=== PATIENT | female | born 1975 | race Two or more races ===

== ENCOUNTER 2024-01-11 16:31 | Outpatient (CLI) | payer BC, SELFPAY ==
[2024-01-11 20:43] LABS: Chlamydia DNA Amplified* NOT DETECTED (No Detected); GC DNA Amplified* NOT DETECTED (No Detected)
== END 2024-01-11 16:32 | disposition home or self-care (01) ==
LOC: NFLDREF 16:32
PROVIDERS: PCP Family Medicine; Visit Provider Registered Nurse
DX: N89.8 Other specified noninflammatory disorders of vagina (principal)
CPT/HCPCS: 87491; 87591

== ENCOUNTER 2024-01-16 15:33 | Outpatient (CLI) | payer BC, SELFPAY ==
--- NOTE | 2024-01-16 16:00 | US_ITS ---
Patient: GERARDO UNGER Facility:?[facility] Patient ID:?[id number] Site Patient ID:?[id number]. Site :?[id number] Study:?US-OB Pelvis TA/TV Pelvic US-01/16/2024 4:46:17 PM Ordering Physician:?Cristiane Leone Final Report: INDICATION: Pain, dyspareunia, Anemia, COMPARISON: none TECHNIQUE: 2D fenton scale and color Doppler images were acquired of the pelvis using a transabdominal and transvaginal approach. In addition, spectral Doppler evaluation of both ovaries performed due to the history of pain. FINDINGS: Sonographic images demonstrate a normal size and smooth outer contour of the uterus. Uterus measures 9.1 cm in length by 4.8 cm in AP diameter by 5.6 cm in transverse dimension. The myometrium has a normal uniform echotexture. The endometrial lining appears thickened and measures 1.5 cm in composite thickness. The right ovary measures 3.2 x 1.7 x 2.3 cm in size and the left ovary measures 3.8 x 1.5 x 2.5 cm. The ovaries demonstrate normal arterial and venous blood flow on color Doppler analysis. There are no suspicious fluid collections within the cul-de-sac. Normal spectral Doppler evaluation of both ovaries. IMPRESSION: Endometrial thickness 1.5 cm. No endometrial fluid. No uterine fibroid. Normal ovaries. No torsion, excess pelvic free fluid or adnexal mass. Dictated by Kenton Robertson MD @ 01/17/2024 10:39:18 AM Signed by:?Kenton Robertson MD @01/17/2024 10:39:18 AM (Electronic Signature)
== END 2024-01-16 15:34 | disposition home or self-care (01) ==
LOC: US 15:34
PROVIDERS: PCP Family Medicine; Visit Provider Registered Nurse
DX: N94.10 Unspecified dyspareunia (principal); R93.89 Abnormal findings on diagnostic imaging of other specified body structures; D64.9 Anemia, unspecified
CPT/HCPCS: 76830; 76856; 93976; T1013

== ENCOUNTER 2024-02-23 09:15 | Outpatient (CLI) | payer BC, SELFPAY ==
--- NOTE | 2024-02-23 11:29 | W.ANESCHARGE ---
Anesthesia Charges Start Date/Time Anesthesia Start Date: 02/23/24 Anesthesia Start Time: 11:02 Stop Date/Time Anesthesia Stop Date: 02/23/24 Anesthesia Stop Time: 11:27
--- NOTE | 2024-02-23 11:42 | W.ANESCHARGE ---
Anesthesia Charges Start Date/Time Anesthesia Start Date: 02/23/24 Anesthesia Start Time: 11:02 Stop Date/Time Anesthesia Stop Date: 02/23/24 Anesthesia Stop Time: 11:27
== END 2024-02-23 09:16 | disposition home or self-care (01) ==
LOC: OP CLINIC 09:16
PROVIDERS: PCP Family Medicine; Visit Provider Surgery
DX: Z12.11 Encounter for screening for malignant neoplasm of colon (principal); K63.5 Polyp of colon; K64.8 Other hemorrhoids; K64.4 Residual hemorrhoidal skin tags
CPT/HCPCS: 00811; 45385; 88305; T1013; J2704

== ENCOUNTER 2024-07-16 17:55 | Outpatient (CLI) | payer BC, SELFPAY ==
--- NOTE | 2024-07-16 18:15 | CRLHL7_ITS ---
For Patients: As a result of the Century Cures Act, medical imaging exams and procedure reports are released immediately into your electronic medical record. You may view this report before your referring provider. If you have questions, please contact your health care provider. Indication: Paresthesia of skin Technique: Noncontrast sagittal T1 weighted, axial FLAIR, axial T2 weighted, and axial diffusion weighted sequences are provided. Comparison: No prior studies available for comparison at this institution. Findings: The ventricles, sulci and gyri are normal size, shape and contour for age. Few punctate foci of T2 prolongation in the supratentorial white matter nonspecific. The midline structures are centrally located with no evidence of shift. The pituitary gland, optic chiasm, pituitary gland, and cerebellar tonsils are unremarkable. There are no suspicious intra or extra-axial fluid collections. No region of restricted diffusion. No pathologic susceptibility artifacts. Expected flow voids in the cavernous carotids and basilar artery. Impression: 1. No acute intracranial abnormality. 2. Punctate focus of T2 prolongation in the left frontal lobe subcortical white matter is nonspecific. Differential considerations include sequela of migraine headaches, prior inflammation, or minimal chronic microangiopathic changes. Dictated by Kenton Henderson MD @ 07/20/2024 11:38:24 AM (Electronically Signed)
== END 2024-07-16 17:56 | disposition home or self-care (01) ==
LOC: MRI 17:56
PROVIDERS: PCP Family Medicine; Visit Provider Registered Nurse
DX: R20.2 Paresthesia of skin (principal); R29.810 Facial weakness
CPT/HCPCS: 70551; T1013

== ENCOUNTER 2024-12-27 09:14 | Emergency (ER) | payer BC, SELFPAY ==
[2024-12-27 09:17] VITALS: BP 126/68; PULSE 86; RESP 20; TEMP 36.5; O2SAT 98; BMI 29.4
--- OUTSIDE RECORDS SUMMARY | 2024-12-27 09:17 | XMS_ITS | Clinical Summary ---
Author Organization [facility] Address [address] [place] [id number] Care Team Providers Care Cut Filer Name Role Phone Pcp, No Primary Care Provider Unavailabl e Allergies No known active allergies Medications albuterol HFA (PRO-AIR; VENTOLIN; PROVENTIL) 90 mcg/actuation inhalerIndications :SOB (shortness of breath) Inhale 1-2 Puffs by mouth every 4 hours if needed for Shortness of Breath 1st choice. 1 Each 2 Active [id number]-Fi sh Oil 1,000 mg (120 mg-180 mg) cap Take 1 Capsule (1,000 mg) by mouth. 0 3 Active naproxen (NAPROSYN) 500 mg tabletIndications: Bilateral carpal tunnel syndrome,Right elbow pain Take 1 Tablet (500 mg) by mouth every 12 hours if needed for Pain. 28 Tablet 3 Active ondansetron (ZOFRAN ODT) 4 mg disintegrating tabletIndications: Headache syndrome Place 1 Tablet (4 mg) on the tongue every 8 hours if needed for Nausea/Vomiti ng. 30 Tablet 3 Active ferrous sulfate 325 mg delayed release tabletIndications: Iron deficiency anemia, unspecified iron deficiency anemia type Take 1 Tablet (325 mg) by mouth two times daily with meals. 90 Tablet 3 3 Active Active Problems Problem Noted Date Diagnosed Date Diarrhea of presumed infectious origin 9 Colitis 08/15/2019 Herniated nucleus pulposus, L5-S1, left 10/11/20 17 History of spinal fracture 09/15/2017 Overview (09/15/2017): Reports fracture of vertebra in 2007 after a fall on the ice Thickened endometrium. Biopsy done 08/15/1507/31 Chronic low back pain 01/30/2015 Atypical migraine 08/08/2012 Depression with anxiety 03/02/2012 LTBI (latent tuberculosis infection) 10/25/2011 Overview (03/19/2013): Has completed 9 month INH course S/P hernia repair 09/14/2011 Anemia, unspecified 08/09/2011 Radiculopathy, lumbar region Pap smear for cervical cancer screening Overview (03/03/2022): 12/2021 NIL/HPV negative. Plan: Pap/HPV due 12/2026 Resolved Problems Problem Noted Date Diagnosed Date Resolved Date Fever 08/15/2019 08/24/2019 Mantoux: positive 08/26/2011 10/25/2011 Overview (08/26/2011): Also positive quantiferon gold test consistent with probable Latent TB Infection (LTBI). Patient should receive prophylactice therapy with INH and pyridoxine. Atypical chest pain 08/26/2011 01/31/20 15 Tobacco abuse disorder 08/16/201108/08 Femoral hernia 08/11/2011 08/08/2012 Inguinal hernia without ment ion of obstruction or gangrene, unilateral or unspecified, (not specified as recurrent) 08/09/2011 08/16/2011 Hepatitis, unspecified 07/15/200901/30 Other and unspecified noninf ectious gastroenteritis and colitis(558.9) 07/15/200901/30 Immunizations Name Administration Dates Next Due Influenza, IIV3 (Age 6-35 mos) 08/03/2011 Influenza, IIV3 (Age >=3 years) 08/03/2011 Influenza, IIV4 07/02/2022, 0,08/08/2018,08/02/2017, 07/19/2016,07/09/2015 Tdap 01/22/2022, 0(Deferred: Patient Refused),11/25/2010 Tuberculin (PPD) 08/16/2011 Family History Medical History Relation Name Comments Alcohol/Drug Father Diabetes Mother Other Mother migraines Anesthesia Problem No Family History Blood Disease No Family History Cancer-breast No Family History Cancer-colon No Family History Cancer-ovarian No Family History Relation Name Status Comments Father alcohol complic ations Mother Social History Tobacco Use Types Packs/Day Years Used Date Smoking Tobacco: Never Cigarettes 0.[address] arted: 08/27/2013 Smokeless Tobacco: Never Tobacco Cessation:Counseling Given: Yes Alcohol Use Standard Drinks/Week Comments Yes 0 (1 standard drink = 0.6 oz pur e alcohol) alcohol abuse 17 years ago PHQ-2 Answer Date Recorded PHQ-2 TOTAL SCORE 3 01/22/2022 Social Connections Answer Date Recorded Frequency of Communication with Friends and Fami ly Not on file 10/31/2023 Financial Resource Strain Answer Date R ecorded Difficulty of Paying Living Expenses 1 10/06/2022 Difficulty of Paying Living Expenses 2 10/06/2022 Food Insecurity Answer Date Recorded Worried About Running Out of Food in the Last Ye ar 2 10/06/2022 Transportation Needs Answer Date Record ed Lack of Transportation (Medical) 1 10/06/2022 Housing Stability Answer Date Recorded Unable to Pay for Housing in the Last Year 1 10/06/2022 Comments No Sex and Gender Information Value Date Recorded Sex Assigned at Not on file Legal Sex Female 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 Gender Identity Not on file Sexual Orientation Not on file Obstetrics History Para Term AB IAB SAB Ectopic Multiple Livin g Live Births 4 4 4 Date Outcome GA Total Labor Labor/2nd/3rd Weight Sex Type Anes PTL Aubrie A1 A5 Name Clin Para Para Para Para Comments 4 vaginal deliveries Last Filed Vital Signs Vital Sign Reading Time Taken Comments Blood Pressure 116/74 12/23/2023 11:05 AM [employer] SUPERVISOR Pulse 74 12/23/2023 11:05 AM [employer] SUPERVISOR Temperature 36.8 C (98.2 F) 12/23/2023 11:05 AM [employer]PARTMENT SUPERVISOR Respiratory Rate 18 07/05/2023 12:49 AM CDT Oxygen Saturation 99% 12/23/2023 11:05 AM [employer] SUPERVISOR Inhaled Oxygen Concentration - - Weight 75.5 kg (166 lb 6.4 oz) 12/23/2023 11:05 AM [employer] SUPERVISOR Height 162.5 cm (5' 3.98) 07/07/2023 1:40 PM CD T Body Mass Index 28.58 07/07/2023 1:40 PM CDT Plan of Treatment Health Maintenance Due Date Last Done Comments HIV for age 15-65 1989 Colonoscopy through age 75 2019 Depression screening for age 12+ 01/25/2023 01/25/2022, 01/22/2022, 01/22/2022, Additional history exists Mammogram for age 45-75 06/17/2023 06/17/20, 06/01/2021, 05/21/2020, Additional history exists COVID-19 vaccine series ( - 2023- season) 2024 BMI (ht and wt on same day) for age 18+ 07/07/2024 07/07/2023, 10/06/2022, 01/22/2022, Additional history exists Influenza for age 50-64 2024 07/02/20, 11/08/2019, 08/08/2018, Additional history exists Pneumococcal series for age 50+ (1 of 1 - PCV) 2024 Zoster (shingles) series for age 50+ (1 of 2) 2024 Lipids for age 45-75 01/22/2027 01/22/2022, 05/21/2020, 05/15/2019, Additional history exists Pap test for age 21-65 01/22/2027 , 01/22/2022, 01/12/2018, Additional history exists Tetanus booster 01/23/2032 01/22/2022, 11/25/2010 Tdap Completed 01/22/2022, 11/25/2010 Hepatitis C screening for ag e 18-79 Completed 07/02/2022 Medical Devices Implanted Type Area Manufactured Buildings Supervisor Device Identifier Shelf Expiration Date Model / Serial / Lot Syshira Hernia Ultrapro - [id number] Implanted:Qty: 1 on 09/03/2011 at [facility] Right: Inguinal J And J [employer] Hernia Solution 09/30/2012 [facility]# / / [id number] Procedures Procedure Name Priority Date/Time Associated Diagnosis Comments ANTI HCV Routine 07/02/2022 3:32 PM CDT Need for hepatitis C screening test XR MAMMO ELVA BILAT SCREEN Routine 06/17/2022 4:13 PM CDT Visit for screening mammogram LIPID PANEL W REFLEX MEASURED LDL Routine 01/22/2022 1:48 PM CDT Screening for lipid disorders HPV HIGH RISK Routine 01/22/2022 1:07 PM CDT Screening for malignant neoplasm of cervix from Last 3 Months or Most Recently Relevant to Health Maintenance Results * ANTI HCV (07/02/2022 3:32 PM CDT) HEPATITIS C ANTIBODY Non-React jacquelin Non-React jacquelin 07/03/2022 9:19 AM CDT [facility] Comment:Antibodies to HCV no t detected; does not exclude the possibility of exposure to HCV. Blood BLOOD SPECIMEN / Unknown Venipuncture / Unknown 07/02/2022 3:32 PM CDT 07/02/2022 3:34 PM CDT us Lisa STALLWORTH SEND OUTS Final Resu lt [facility] [address] [place] [address], * XR MAMMO ELVA BILAT SCREEN (06/17/2022 4:13 PM CDT) Anatomical Region Laterality Modality BREASTS, Breast Left, Breast Right Bilateral Mammography Impressions 06/18/2022 2:38 PM CDT There is no radiographic evidence for malignancy. Recommend annual mammograms. MAMMOGRAM ASSESSMENT: ACR 1 Negative PATIENTS: You will also receive a letter with your examination results in an easy to read format. If you have questions about your results, please contact your referring provider. Narrative 06/18/2022 2:38 PM CDT For Patients: As a result of the Cures Act, medical imaging exams and procedure reports are released immediately into your electronic medical record. You may view this report before your referring provider. If you have questions, please contact your health care provider. XR MAMMO ELVA BILAT SCREEN [[id number]] CLINICAL HISTORY: This is an asymptomatic 46 y.o. patient. INDICATION FOR EXAM: Mammogram Screening. TECHNIQUE: CC & MLO views were obtained. This study was evaluated with the assistance of Computer-Aided Detection. Breast Tomosynthesis was used in interpretation. COMPARISON FILM: Yes 06/01/21 [facility] 05/21/20 [facility] FINDINGS: The breasts have scattered areas of fibroglandular density. There are no dominant masses, suspicious micro calcifications or areas of architectural distortion. Lisa STALLWORTH MAMMO Final Resu lt * (ABNORMAL) LIPID PANEL W REFLEX MEASURED LDL (01/22/2022 1:48 PM CDT) CHOLESTEROL,TOTAL 157 100 - 199 mg/dL 01/22/2022 11:13 PM CDT [facility] TRIGLYCERIDES 65 <150 mg/dL 01/22/2022 11:13 PM CDT [facility] HDL CHOLESTEROL 33(L) >40 mg/dL 11:13 PM CDT [facility] NON-HDL CHOLESTEROL 124 <145 mg/dl 01/22/2022 11:13 PM CDT [facility] CHOL/HDL RATIO 4.76(H) <4.50 01/22/2022 11:13 PM CDT [facility] LDL CHOLESTEROL 111 <=130 mg/dL 01/22/2022 11:13 PM CDT [facility] VLDL CHOLESTEROL 13 <=30 mg/dL 01/22/2022 11:13 PM CDT [facility] PROVIDER ORDERED STATUS RANDOM 01/22/2022 11:13 PM CDT [facility] Blood BLOOD SPECIMEN / Unknown Venipuncture / Unknown 01/22/2022 1:48 PM CDT 01/22/2022 1:48 PM CDT Lisa STALLWORTH CHEMISTRY Final Resu lt [facility] [address] [place] [address], * HPV HIGH RISK (01/22/2022 1:07 PM CDT) TYPE 16 Negative Negative 01/26/2022 2:27 PM CDT [facility] TYPE 18 Negative Negative 01/26/2022 2:27 PM CDT [facility] OTHER HIGH RISK TYPES Negative Negative 01/26/2022 2:27 PM CDT [facility] Other (Cervical) Non-Blood / Unknown 01/22/2022 1:07 PM CDT 01/25/2022 7:55 AM CDT Narrative [facility] - 01/26/2022 2:27 PM CDT HPV types 16, 18, 31, 33, 35, 39, 45, 51, 52, 56, 58, 59, 66 and 68 DNA were undetectable or below the pre-set threshold. Methodology: [employer] 4800 HPV Test us Lisa STALLWORTH MICROBIOLOGY Final Resu lt Performing Organization Address City/[facility]/ZIP Co de Phone Number [facility] [address] [place] [phone], from Last 3 Months or Most Recently Relevant to Health Maintenance Insurance [facility] ATTN: [place] [address] Advance Directives * Full Code (Latest Code Status on File) Date Activated Date Inactivated Comments 08/14/2019 7:54 PM 08/16/2019 12:19 PM * Full Code Date Activated Date Inactivated Comments 10/11/2017 3:31 PM 10/11/2017 8:12 PM * Full Code Date Activated Date Inactivated Comments 10/11/2017 10:09 AM 10/11/2017 3:31 PM * Full Code Date Activated Date Inactivated Comments 09/03/2011 6:28 AM 09/03/2011 6:32 AM Care Teams Cut Filer Relationship Specialty Start Date End Date Pcp, No . PCP - General 11/06/24
--- NOTE | 2024-12-27 10:02 | ED.GENADULT ---
HPI - General Adult General Date Seen: 12/27/24 Chief complaint: Abdominal Pain Stated complaint: pain in stomach since tuesday Time Seen by Provider: 12/27/24 09:29 History of Present Illness HPI narrative: patient is a 49-year-old woman, primarily Portuguese-speaking and hydrotherapist was utilized to help with history. She presented initially to urgent care and then was referred here for evaluation of abdominal pain. She tells me that on Tuesday, she had developed some pain in the right lower quadrant. It was her birthday on the , and she did have quite a bit of Tequila to celebrate her birthday. She tells me she drinks beer occasionally but generally does not drink hard alcohol and does not drink regularly. The right lower quadrant pain is still there but now she has more diffuse upper abdominal pain which is more predominant. She has continued to eat and drink although she says she really has not had an appetite, and pain is worsened by eating. She has not had any vomiting, has felt a little nauseated. No fevers, no diarrhea, black or bloody stools. No history of similar pain. No prior abdominal surgeries aside from what sounds like probably tubal ligation. She does not smoke. Last intake was yesterday. Related Data Previous Rx's ?Medication ?Instructions ?Recorded omeprazole 40 mg capsule,delayed 40 mg PO DAILY #30 caps 12/27/24 release Allergies Allergy/AdvReac Type Severity Reaction Status Date / Time No Known Drug Allergies Allergy Verified 12/27/24 10:44 Review of Systems Status of ROS: Reports: 10 or more systems reviewed and unremarkable except as noted in History and below PFSH [facility] Medical History Mild intermittent asthma ?J45.20 - Mild intermittent asthma, uncomplicated (ICD-10) Bilateral carpal tunnel syndrome (04/04/23) ?G56.03 - Carpal tunnel syndrome, bilateral upper limbs (ICD-10) Chronic low back pain ?M54.50 - Low back pain, unspecified (ICD-10) ?G89.29 - Other chronic pain (ICD-10) History of hepatitis ?Z86.19 - Personal history of other infectious and parasitic diseases (ICD-10) Cystocele Migraines ?G43.909 - Migraine, unspecified, not intractable, without status migrainosus (ICD-10) Dyspareunia Positive PPD (2017) ?R76.11 - Nonspecific reaction to tuberculin skin test without active tuberculosis (ICD-10) Anxiety and depression ?F41.9 - Anxiety disorder, unspecified (ICD-10) ?F32.A - Depression, unspecified (ICD-10) Anemia ?D64.9 - Anemia, unspecified (ICD-10) Surgical History History of lumbar discectomy ?Z98.890 - Other specified postprocedural states (ICD-10) History of right inguinal hernia repair ?Z98.890 - Other specified postprocedural states (ICD-10) ?Z87.19 - Personal history of other diseases of the digestive system (ICD-10) H/O tubal ligation ?Z98.51 - Tubal ligation status (ICD-10) H/O tooth extraction ?K08.409 - Partial loss of teeth, unspecified cause, unspecified class (ICD-10) Family History Sister Lung cancer Depression Daughter Thyroid disease Brother Diabetes Mother Migraines Diabetes Depression Father Alcohol dependence Social History Narrative: , four kids, Gonsalez's, nonsmoker, social ETOH What is your current living situation?: I presently have a place to live Problems where you live: no known problems In the past 12 months, utilities in danger of being shut off: no In past 12 months, lack of transportation kept you from medical appts, meetings, work, or getting things needed for daily living: no In the past 12 mos, have been you worried that your food would run out before you had money to buy more?: never true In the past 12 mos, the food you bought just didn't last and you didn't have money to buy more?: never true Smoking Status: Never smoker How often do you have a drink containing alcohol: 2-4 times a month AUDIT-C Alcohol total score: 2 Non-prescribed substance use: denies use How often does anyone, including family, friends and others, physically hurt you: never How often does anyone, including family, friends and others, insult or talk down to you: never How often does anyone, including family, friends and others, threaten you with harm: never How often does anyone, including family, friends and others, scream or curse at you: never Exam Narrative: Exam Narrative: Vital signs reviewed In general, alert, nontoxic Woman. She looks a little uncomfortable. Head: Normocephalic, atraumatic. Eyes: Sclera clear. Pupils equal and reactive. ENT: Mucous membranes moist. Neck: Supple without adenopathy. Heart: Regular rate and rhythm without murmur. Lungs: Clear. No increased work of breathing, crackles or wheezes. Abdomen: Nondistended. She has fairly diffuse tenderness to palpation throughout the abdomen. She has negative Canchola sign. She does have tenderness at McBurney's point. She does not have any rebound guarding or rigidity throughout. Extremities: Well perfused, pulses intact. No significant edema. Neurologic: Alert, conversant. Speech fluent, face symmetric. Moves all extremities equally. Skin: Warm, dry well perfused. Affect: Normal. Const: Vital Signs, click to edit/add: Vital Signs - 24 hr 12/27/24 09:17 Temperature 97.7 F Pulse Rate [Pulse Oximeter] 86 Respiratory Rate 20 Blood Pressure [Ri ght Upper Arm] 126/68 Pulse Oximetry 98 Oxygen Delivery Me thod Room Air Course Course ED Course: following initial evaluation, I did look with a bedside ultrasound. Her gallbladder appears fairly normal to me. I do not see obvious stones or significant sludge, wall thickening or pericholecystic fluid. She does not seem to have a sonographic Canchola's. Overall, my suspicion for biliary disease is lowered by her point of care ultrasound and I did recommend that we proceed with CT scan to further evaluate for pancreatitis, appendicitis, diverticulitis, etcetera. Will obtain labs, UA, EKG. I have low suspicion for cardiac etiology for her symptoms given diffuse abdominal tenderness and duration of symptoms. Initially, Toradol and Zofran as well as Protonix ordered for symptomatic relief. EKG by my review showed a sinus rhythm with a ventricular rate of 66. No ST segment changes, unremarkable T-waves. Labs are entirely within normal limits aside from mild anemia of 10.4 and mild leukopenia with a white blood cell count of 4.24. Last hemoglobin was checked a year ago and was 12 and half at that time. She does not report any GI bleeding today, unclear how acute that changes. I would recommend follow-up with primary care. She did have a colonoscopy in January [address] scan of the abdomen by my review did not show evidence of diverticulitis, appendicitis, pancreatitis or other acute findings. Final radiology read is negative. Etiology of her symptoms is not entirely clear although I wonder about gastritis/peptic ulcer disease related to her recent significant alcohol intake. There is no suggestion of pancreatitis or hepatitis. I recommended a trial of omeprazole with primary care follow-up next week for recheck of abdominal pain as well as hemoglobin. If hemoglobin is continuing to drop, endoscopy may be reasonable. Return to the ER at any time for black or bloody stools, severe pain, fevers vomiting etcetera. Vital Signs Vital signs: Initial Vital Signs Temperature 97.7 F 12/27/24 09:17 Temperature Source Temporal Artery Scan 12/27/24 09:17 Pulse Rate 86 12/27/24 09:17 Respiratory Rate 20 12/27/24 09:17 Blood Pressure 126/68 12/27/24 09:17 Blood Pressure Mean 87 12/27/24 09:17 Blood Pressure Position Sitting 12/27/24 09:17 Pulse Oximetry 98 12/27/24 09:17 Oxygen Delivery Method Room Air 12/27/24 09:17 Vital Signs Temperature 97.7 F 12/27/24 09:17 Pulse Rate 86 12/27/24 09:17 Respiratory Rate 20 12/27/24 09:17 Blood Pressure 126/68 12/27/24 09:17 Pulse Oximetry 98 12/27/24 09:17 Oxygen Delivery Method Room Air 12/27/24 09:17 Temperature 97.7 F 12/27/24 09:17 Pulse Rate 86 12/27/24 09:17 Respiratory Rate 20 12/27/24 09:17 Blood Pressure 126/68 12/27/24 09:17 Pulse Oximetry 98 12/27/24 09:17 Oxygen Delivery Method Room Air 12/27/24 09:17 Medications Administered Medications: Discontinued Medications Generic Name Dose Route Start Last Admin Trade Name Freq PRN Reason Stop Dose Admin Ketorolac Tromethamine 15 mg 12/27/24 09:59 12/27/24 10:41 Ketorolac 15 Mg/Ml Inj IVP 12/27/24 10:00 15 mg ONCE ONE Administration Ondansetron HCl 4 mg 12/27/24 09:59 12/27/24 10:44 Ondansetron 2 Mg/Ml Inj IVP 12/27/24 10:00 4 mg ONCE ONE Administration Pantoprazole Sodium 40 mg 12/27/24 09:59 12/27/24 10:44 Pantoprazole Sodium 40 Mg Inj IVP 12/27/24 10:00 40 mg ONCE ONE Administration Medical Decision Making Lab Data Lab results reviewed: Yes I reviewed the patient's lab results Labs: Lab Results 12/27/24 12/27/24 Range/Units 10:23 10:33 WBC 4.24 L (4.50-11.00) K/uL RBC 4.31 (4.00-5.20) m/uL Hgb 10.4 L (12.0-16.0) gm/dL Hct 33.4 (33.0-51.0) % MCV 78 L (80-100) fL MCH 24 L (26-34) pg MCHC 31 L (32-36) gm/dL RDW Coeff of [place] 15.8 H (11.5-15.5) % Plt Count 186 (140-440) K/uL Neut % (Auto) 58.8 (42.0-72.0) % Lymph % (Auto) 29.2 (20-44) % [place] % (Auto) 9.9 (0.0-11.0) % Eos % (Auto) 2.1 (0.0-7.0) % Baso % (Auto) 0.0 (0.0-3.0) % Neut # (Auto) 2.50 (1.7-7.0) K/uL Lymph # (Auto) 1.20 (0.90-2.90) K/uL [place] # (Auto) 0.40 (0.00-0.90) K/UL Eos # (Auto) 0.10 (0.00-0.50) K/uL Baso # (Auto) 0.00 (0.00-0.30) K/uL Abs Immat Gran (auto) 0.00 (0.00-0.30) K/uL Imm/Tot Granulo (auto) 0.0 % Sodium 137 (135-149) mmol/L Potassium 3.9 (3.6-5.1) mmol/L Chloride 106 (96-114) mmol/L Carbon Dioxide 24 (20-32) mmol/L Anion Gap 7 (7-15) mEq/L BUN 18 (7-30) mg/dL Creatinine 0.6 (0.5-1.5) mg/dL Estimated Creat Clear 96.86 Estimated GFR 109 ml/min Glucose 90 (60-115) mg/dL Lactate 0.8 (0.5-1.9) mmol/L Calcium 8.0 L (8.4-10.6) mg/dL Total Bilirubin 0.4 (0.1-1.5) mg/dL Direct Bilirubin 0.1 (0.0-0.5) mg/dL AST 22 (12-35) U/L ALT 22 (4-35) U/L Alkaline Phosphatase 67 (40-150) U/L C-Reactive Protein < 0.5 L (0.5-1.0) mg/dL Total Protein 6.8 (6.0-8.3) g/dL Albumin 4.0 (3.3-5.0) g/dL Lipase 50 (23-300) U/L Urine Color Yellow (Yellow) Urine Appearance Clear (Clear) Urine pH 8.5 (5.0-8.5) Ur Specific [place] 1.015 (1.000-1.030) Urine Protein Trace A (Negative) Urine Glucose (UA) Negative (Negative) Urine Ketones Negative (Negative) Urine Blood Negative (Negative) Urine Nitrite Negative (Negative) Urine Bilirubin Negative (Negative) Urine Urobilinogen 0.2 (0.2-1.0) Ur Leukocyte Esterase Negative (Negative) Urine RBC 0-2 (0-2) Urine WBC 0-2 (0-5) Ur Squamous Epith Cells Few (None-Few) Urine Bacteria Few A (None) Imaging Data CT scan - abdomen: Attestation: I have reviewed the pertinent imaging results. Radiologist's impression: Patient: Isaiah Burnett MR#: [id number] : 1975 Acct:[id number] Loc: ED Service Date: 12/27/[address]: Ordering Physician: Lima Crowder M.D. Date of Service: 12/27/24 Procedure(s): CT abdomen pelvis w con Accession Number(s): [id number] cc: Lima Crowder M.D.; Kenton Liz M.D.~ For Patients: As a result of the Century Cures Act, medical imaging exams and procedure reports are released immediately into your electronic medical record. You may view this report before your referring provider. If you have questions, please contact your health care provider. Indication: Right lower quadrant abdominal and general upper abdominal pain Technique: Volumetric multidetector CT images of the abdomen and pelvis were obtained after the administration of intravenous contrast. 84 cc Isovue 370 low osmolar intravenous contrast Comparison: None available. Findings: The lung bases are clear. The liver is normal in attenuation without intrahepatic biliary ductal dilatation. The portal vein is patent. The gallbladder is unremarkable without evidence of radiopaque calculus. There is no significant common biliary ductal dilatation or abrupt cut off. The spleen is normal in enhancement and size. The stomach and duodenum are grossly unremarkable. The pancreas is normal in enhancement without significant atrophy. The adrenal glands are unremarkable. The kidneys demonstrate preserved corticomedullary differentiation without evidence of obstructive uropathy. There is moderate stool seen throughout the colon without significant colonic diverticulosis or diverticulitis. The appendix is unremarkable. There is no significant mesenteric, retroperitoneal, or pelvic sidewall lymph nodes. The aorta is nonaneurysmal. There is no significant atherosclerotic disease appreciated. There is demonstration an involuting follicle within the right ovary. Otherwise the ovaries are grossly within normal limits. The pelvic viscera are grossly within normal limits. There is no free fluid or free air. The anterior abdominal wall is intact without significant hernias. The lumbar vertebral body heights are grossly maintained with mild central disc protrusion at the L4-L5 level. Impression: 1. Normal appendix and gallbladder. 2. Moderate stool seen throughout the colon. 3. Mildly prominent right ovary with likely involuting ovarian follicle appreciated. 4. Otherwise, no definite acute intra-abdominal abnormalities are appreciated. Please note that all CT scans at this facility use dose modulation, iterative reconstruction, and/or weight-based dosing when appropriate to reduce radiation dose to as low as reasonably achievable. Dictated by Carlos Marte MD @ 12/27/2024 11:15:38 AM Discharge Plan Discharge Clinical Impression: Abdominal pain, Anemia Patient Disposition: Home, Self-Care Condition: Stable Instructions: Abdominal Pain (ED), Anemia (ED) Additional Instructions: All of your tests today are normal. At this time, I do not see evidence of problems with your gallbladder, liver, appendix, pancreas etcetera. Symptoms may be related to irritation of your stomach from alcohol. I would suggest that we start you on a medicine to help control acid and see if you feel better. You are mildly anemic, I do not know whether this is a new problem or has been going on for a little while, but this should be followed up with your primary doctor. If your abdominal pain is worsening or you have new symptoms such as vomiting, black or bloody stools, fevers or other worsening, return to the emergency department. Otherwise, follow-up with primary care next week. Prescriptions: New omeprazole 40 mg capsule,delayed release(DR/EC) 40 mg PO DAILY Qty: 30 2RF Follow Up/Referrals: Kenton Liz MD [Primary Care Provider] - Stand Alone Forms: [employer] Info Instructions
--- OUTSIDE RECORDS SUMMARY | 2024-12-27 10:12 | XMS_ITS | Clinical Summary ---
Author Organization [facility] Address [address] [place] [id number] Care Team Providers Care Timber Framer Helper Name Role Phone Pcp, No Primary Care Provider Unavailabl e Allergies No known active allergies Medications albuterol HFA (PRO-AIR; VENTOLIN; PROVENTIL) 90 mcg/actuation inhalerIndications :SOB (shortness of breath) Inhale 1-2 Puffs by mouth every 4 hours if needed for Shortness of Breath 1st choice. 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 Gender Identity Not on file Sexual Orientation [...] Comments Blood Pressure 116/74 12/23/2023 11:05 AM LAMP SHADE ASSEMBLER Pulse 74 12/23/2023 11:05 AM LAMP SHADE ASSEMBLER Temperature 36.8 C (98.2 F) 12/23/2023 11:05 AM LAMP SHADE ASSEMBLER Respiratory Rate 18 07/05/2023 12:49 AM CDT Oxygen Saturation 99% 12/23/2023 11:05 AM LAMP SHADE ASSEMBLER Inhaled Oxygen Concentration - - Weight 75.5 kg (166 lb 6.4 oz) 12/23/2023 11:05 AM LAMP SHADE ASSEMBLER Height 162.5 cm (5' 3.98) 07/07/2023 1:40 [...] Completed 07/02/2022 Medical Devices Implanted Type Area Personal Chef Device Identifier Shelf Expiration Date Model / Serial / Lot Syshira Hernia Ultrapro - [id number] Implanted:Qty: 1 on 09/03/2011 at [facility] Right: Inguinal J And J Ethicon Hernia Solution 09/30/2012 [facility]# / / [id number] Procedures Procedure Name Priority Date/Time Associated Diagnosis [...] jacquelin Non-React jacquelin 07/03/2022 9:19 AM CDT [facility] Comment:Antibodies to HCV no t detected; does not exclude the possibility of exposure to HCV. Blood BLOOD SPECIMEN / Unknown Venipuncture / Unknown 07/02/2022 3:32 PM CDT 07/02/2022 3:34 PM CDT us Lisa STALLWORTH SEND OUTS Final Resu lt [facility] [address] [place] [address], * XR MAMMO ELVA BILAT SCREEN (06/17/2022 [...] care provider. XR MAMMO ELVA BILAT SCREEN [[id number]] CLINICAL HISTORY: This is an asymptomatic 46 y.o. patient. INDICATION FOR EXAM: Mammogram Screening. TECHNIQUE: CC & MLO views were obtained. This study was evaluated with the assistance of Computer-Aided Detection. Breast Tomosynthesis was used in interpretation. COMPARISON FILM: Yes 06/01/21 [facility] 05/21/20 [facility] FINDINGS: The breasts have scattered areas of fibroglandular density. There are no dominant masses, suspicious micro calcifications or areas of architectural distortion. Lisa STALLWORTH MAMMO Final Resu lt * (ABNORMAL) LIPID PANEL W REFLEX MEASURED LDL (01/22/2022 1:48 PM CDT) CHOLESTEROL,TOTAL 157 100 - 199 mg/dL 01/22/2022 11:13 PM CDT [facility] TRIGLYCERIDES 65 <150 mg/dL 01/22/2022 11:13 PM CDT [facility] HDL CHOLESTEROL 33(L) >40 mg/dL 11:13 PM CDT [facility] NON-HDL CHOLESTEROL 124 <145 mg/dl 01/22/2022 11:13 PM CDT [facility] CHOL/HDL RATIO 4.76(H) <4.50 01/22/2022 11:13 PM CDT [facility] LDL CHOLESTEROL 111 <=130 mg/dL 01/22/2022 11:13 PM CDT [facility] VLDL CHOLESTEROL 13 <=30 mg/dL 01/22/2022 11:13 PM CDT [facility] PROVIDER ORDERED STATUS RANDOM 01/22/2022 11:13 PM CDT [facility] Blood BLOOD SPECIMEN / Unknown Venipuncture / Unknown 01/22/2022 1:48 PM CDT 01/22/2022 1:48 PM CDT Lisa STALLWORTH CHEMISTRY Final Resu lt [facility] [address] [place] [address], * HPV HIGH RISK (01/22/2022 1:07 PM CDT) TYPE 16 Negative Negative 01/26/2022 2:27 PM CDT [facility] TYPE 18 Negative Negative 01/26/2022 2:27 PM CDT [facility] OTHER HIGH RISK TYPES Negative Negative 01/26/2022 2:27 PM CDT [facility] Other (Cervical) Non-Blood / Unknown 01/22/2022 1:07 PM CDT 01/25/2022 7:55 AM CDT Narrative [facility] - 01/26/2022 2:27 PM CDT HPV types 16, 18, 31, 33, 35, 39, 45, 51, 52, 56, 58, 59, 66 and 68 DNA were undetectable or below the pre-set threshold. Methodology: Medify[employer] 4800 HPV Test us Lisa STALLWORTH MICROBIOLOGY Final Resu lt Performing Organization Address City/[facility]/ZIP Co de Phone Number [facility] [address] [place] [phone], from Last 3 Months or Most Recently Relevant to Health Maintenance Insurance [facility] CARE ATTN: [place] [address] Advance Directives * Full Code (Latest Code [...] 6:28 AM 09/03/2011 6:32 AM Care Teams Timber Framer Helper Relationship Specialty Start Date End Date Pcp, No . PCP - General 11/06/24
[2024-12-27 10:30] LABS: Lactate Sepsis w/Reflex* 0.8 mmol/L (0.5-1.9)
[2024-12-27 10:31] LABS: Eosinophils Percent Auto 2.1 % (0.0-7.0); Hematocrit 33.4 % (33.0-51.0); Hemoglobin* 10.4 gm/dL (12.0-16.0); Lymphocytes Percent Auto 29.2 % (20-44); Mean Corpuscular HGB Conc 31 gm/dL (32-36); Mean Corpuscular Hemoglobin 24 pg (26-34); Mean Corpuscular Volume 78 fL (80-100); Monocytes Percent Auto 9.9 % (0.0-11.0); Neutrophils Percent Auto 58.8 % (42.0-72.0); Platelet Count* 186 K/uL (140-440); RDW Coefficient of Variation % 15.8 % (11.5-15.5); Red Blood Count 4.31 m/uL (4.00-5.20); White Blood Count* 4.24 K/uL (4.50-11.00)
[2024-12-27 10:39] LABS: Appearance Urine Clear (Clear); Bilirubin Urine Negative (Negative); Blood Urine Negative (Negative); Color Urine Yellow (Yellow); Glucose Urine Negative (Negative); Ketones Urine Negative (Negative); Leukocyte Esterase Urine Negative (Negative); Nitrite Urine Negative (Negative); Protein Urine Trace (Negative); Specific Gravity Urine 1.015 (1.000-1.030); Urobilinogen Urine 0.2 (0.2-1.0); pH Urine 8.5 (5.0-8.5)
[2024-12-27] MEDS: KETOROLAC 15 MG/ML inj IVP (10:41)
[2024-12-27 10:43] LABS: Slide Review Reflex No
[2024-12-27] MEDS: PANTOPRAZOLE SODIUM 40 MG INJ IVP (10:44)
[2024-12-27] MEDS: ONDANSETRON 2 MG/ML inj 4 MG IVP (10:44)
[2024-12-27 10:45] LABS: Chloride* 106 mmol/L (96-114); Potassium* 3.9 mmol/L (3.6-5.1); Sodium* 137 mmol/L (135-149)
[2024-12-27 10:48] LABS: Anion Gap 7 mEq/L (7-15); Blood Urea Nitrogen* 18 mg/dL (7-30); Carbon Dioxide* 24 mmol/L (20-32); Creatinine* 0.6 mg/dL (0.5-1.5); Est. Creatinine Clearance* 96.86; Estimated Glomerular Filt Rate 109 ml/min; Glucose* 90 mg/dL (60-115)
[2024-12-27 10:49] LABS: Alanine Aminotransferase* 22 U/L (4-35); Alkaline Phosphatase* 67 U/L (40-150); Aspartate Amino Transferase* 22 U/L (12-35); Bilirubin Direct* 0.1 mg/dL (0.0-0.5); Bilirubin Total* 0.4 mg/dL (0.1-1.5); Lipase* 50 U/L (23-300); Total Protein* 6.8 g/dL (6.0-8.3)
[2024-12-27 10:55] LABS: C Reactive Protein* < 0.5 mg/dL (0.5-1.0)
[2024-12-27 10:57] LABS: RBC Urine 0-2 (0-2); WBC Urine 0-2 (0-5)
[2024-12-27 11:03] LABS: Bacteria Urine Few; Squamous Epithelial Cell Urine Few (None-Few)
== END 2024-12-27 11:54 | disposition home or self-care (01) ==
PROVIDERS: Emergency Provider Emergency Medicine; PCP Family Medicine
DX: R10.31 Right lower quadrant pain (principal); D64.9 Anemia, unspecified
CPT/HCPCS: 36415; 74177; 76705; 80048; 80076; 81001; 83605; 83690; 85025; 86140; 87086; 87186; 93005; 99284; 99285; T1013; J1885; J2405; J2470; Q9967